=== PATIENT | female | born 1965 | race Caucasian/White ===

== ENCOUNTER 2017-10-14 06:08 | Emergency (ER) | payer BC ==
[~2017-10-14] VITALS: Ht 165.1 cm; Wt 71.7 kg
[2017-10-14] MEDS ORDERED: NS(*) 0.9% 1000 ML BAG 1,000 ML IV ONE (06:20)
[2017-10-14] MEDS ORDERED: MORPHINE 4 MG/ML SYR IVP ONE (06:20)
[2017-10-14] MEDS ORDERED: ONDANSETRON 4 MG/2 ML VIAL IVP ONE (06:20)
[2017-10-14] MEDS ORDERED: SERT20OR6 PO (06:25)
[2017-10-14] MEDS ORDERED: TRAZ-163 PO (06:25)
[2017-10-14] MEDS ORDERED: BECL8.7H INH (06:29)
[2017-10-14] MEDS ORDERED: ALB18R INH (06:29)
[2017-10-14] MEDS ORDERED: NS 0.9% 50 ML VIAL 50 ML ONE (06:45)
[2017-10-14] MEDS ORDERED: IOPAMIDOL 76% 75 ML INFUS BTL 75 ML ONE (06:45)
[2017-10-14 06:47] LABS: PLATELET COUNT, AUTOMATED 209 K/uL (150-450)
--- NOTE | 2017-10-14 06:49 | ER Report ---
History and Physical Time Seen By MD: 06:34 Hx. of Stated Complaint: patient having bilat flank pain for a couple months, but this morning the pain has really gotten wrose. freaquency of urine. patient states she is having nausea. patient took lee. patient has hx of pyelonephritis. (ESTELA BISHOP MD) HPI/ROS CHIEF COMPLAINT: Flank pain HISTORY OF PRESENT ILLNESS: This is a 51-year-old female. She came to the ER this morning because of ongoing problems with flank pain. This is been going on off and on for a couple of days now. At its worst it will be an 8 on a 1-10 scale. Currently about a 4 or 5. Nothing really makes it worse or better. Pain does not ever completely go away. Pain is mainly in the right flank but also a little bit in the left back as well at times. It never really goes into the anterior abdomen. Sometimes is bad enough that it takes her breath away. Her primary care doctor is Dr. 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 She has followed up with Dr. Gonzalez. CT scan also showed a pulmonary nodule. She is also seeing an solar photovoltaic installer for allergies and currently on allergy medicine and nasal spray. Denies any fevers or chills. She has not had any dysuria or hematuria or other changes in the urine. No changes in bowel including no constipation, diarrhea or blood in the stool. Some nausea but no vomiting. REVIEW OF SYSTEMS: Constitutional: No fevers or chills. Eyes: No vision changes. ENT: Congestion and sore throat are mild. Cardiovascular: No chest pain. No palpitations. Respiratory: No cough. No shortness of breath. Gastrointestinal: As above. Genitourinary: As above. Musculoskeletal: No extremity pain. Neurological: History of seizures in the past and subsequent neurosurgery. (ESTELA BISHOP MD) Allergies: Coded Allergies: No Known Drug Allergies (Unverified , 10/14/17) Home Meds Reported Medications Beclomethasone Dipropionate (QNASL) 8.7 Gm Hfa.aer.ad, 2 PUFF INH BID 10/14/17 Albuterol Sulfate (VENTOLIN HFA) 18 Gm Inh, 2 PUFF INH Q4-6H Y for SHORTNESS OF BREATH 1/20/18 Trazodone Hcl (TRAZODONE HCL) 100 Mg Tablet, 100 MG PO HS, TAB 10/14/17 Sertraline Hcl (ZOLOFT) 100 Mg Tablet, 1 TAB PO QDAY, TAB 10/14/17 Reviewed Nurses Notes: Yes (ESTELA BISHOP MD) Hx Substance Use Disorder: No Hx Alcohol Use: Yes (occasional ) (ESTELA BISHOP MD) Constitutional Vital Sign - Last 24 Hours 10/14/17 10/14/17 10/14/17 10/14/17 06:15 06:21 06:23 06:30 Temp 98.2 Pulse 65 56 Resp 24 B/P (MAP) 155/96 146/80 (102) 141/84 (103) Pulse Ox 96 95 O2 Delivery Room Air 10/14/17 10/14/17 10/14/17 10/14/17 06:38 06:49 06:53 06:58 Pulse 67 57 53 Pulse Ox 94 97 97 O2 Flow Rate 1.0 10/14/17 10/14/17 10/14/17 07:13 07:28 07:30 Pulse 51 57 B/P (MAP) 123/69 (87) Pulse Ox 100 (RICK GARCIA MD) Physical Exam General Appearance: The patient is alert. No acute distress. Eyes: Pupils are equal, round. No pallor, injection or icterus. ENT: Mucous membranes are moist. Normal oral mucosa. Posterior oropharynx is normal. Neck: Supple and non tender. No lymphadenopathy. Respiratory: Lungs are clear to auscultation. Cardiovascular: Regular rate and rhythm. No murmurs, gallops or rubs. Normal capillary refill. No edema. Gastrointestinal: Abdomen is soft and non tender. Nondistended. No masses or organomegaly. Normal active bowel sounds. Mild right costovertebral tenderness. Neurological: Alert and oriented x3. Skin: Warm and dry. Musculoskeletal: No tenderness with palpation of thoracic or lumbar spine. Very mild discomfort with palpation over the right lumbar area. DIFFERENTIAL DIAGNOSIS: After history and physical exam, differential diagnosis was considered for flank pain including but not limited to musculoskeletal causes, kidney stone, pyelonephritis, shingles, and intra-abdominal causes such as diverticulitis and appendicitis. (ESTELA BISHOP MD) Medical Decision Making Data Points Result Diagram: 10/14/17 0629 10/14/17 0629 Laboratory Hematology Test 10/14/17 06:29 Red Blood Count 5.04 M/uL (4.17-5.56) Mean Corpuscular Volume 90.2 fL (80.0-96.0) Mean Corpuscular Hemoglobin 31.1 pg (26.0-33.0) Mean Corpuscular Hemoglobin Concent 34.5 g/dL (32.0-36.0) Red Cell Distribution Width 12.9 % (11.5-14.5) Mean Platelet Volume 7.7 fL (7.2-11.1) Neutrophils (%) (Auto) 62.2 % (39.4-72.5) Lymphocytes (%) (Auto) 23.4 % (17.6-49.6) Monocytes (%) (Auto) 7.0 % (4.1-12.4) Eosinophils (%) (Auto) 6.3 % (0.4-6.7) Basophils (%) (Auto) 1.1 % (0.3-1.4) Nucleated RBC Relative Count (auto) 0.1 /100WBC Neutrophils # (Auto) 5.0 K/uL (2.0-7.4) Lymphocytes # (Auto) 1.9 K/uL (1.3-3.6) Monocytes # (Auto) 0.6 K/uL (0.3-1.0) Eosinophils # (Auto) 0.5 K/uL (0.0-0.5) Basophils # (Auto) 0.1 K/uL (0.0-0.1) Nucleated RBC Absolute Count (auto) 0.01 K/uL Urine Color Yellow Urine Clarity Turbid Urine pH 7.0 pH (4.8-9.5) Urine Specific [place] 1.015 Urine Protein Negative mg/dL (NEGATIVE) Urine Glucose (UA) Negative mg/dL (NEGATIVE) Urine Ketones Negative mg/dL (NEGATIVE) Urine Blood Negative (NEGATIVE) Urine Nitrite Negative (NEGATIVE) Urine Bilirubin Negative (NEGATIVE) Urine Urobilinogen Negative mg/dL (0.2-1.9) Urine Leukocyte Esterase Trace (NEGATIVE) Urine RBC 1 /HPF (0-2/HPF) Urine WBC 3 /HPF (0-5/HPF) Urine Squamous Epithelial Cells Moderate /LPF (</=FEW) Urine Amorphous Crystals Moderate /HPF Urine Bacteria Negative /HPF (NONE-FEW) Urine Mucus Few /HPF (NONE-FEW) Sodium Level 138 mmol/L (137-145) Potassium Level 4.1 mmol/L (3.5-5.0) Chloride Level 103 mmol/L (98-107) Carbon Dioxide Level 27 mmol/L (22-31) Blood Urea Nitrogen 17 mg/dl (7-18) Creatinine 1.00 mg/dl (0.52-1.04) Glomerular Filtration Rate Calc 58.2 Random Glucose 88 mg/dl (75-110) Calcium Level 9.4 mg/dl (8.4-10.2) Total Bilirubin 0.5 mg/dl (0.2-1.3) Aspartate Amino Transf (AST/SGOT) 33 U/L (0-35) Alanine Aminotransferase (ALT/SGPT) 57 U/L (0-56) Alkaline Phosphatase 100 U/L (0-126) Total Protein 6.8 gm/dl (6.3-8.2) Albumin 3.8 g/dl (3.5-5.0) Chemistry Test 10/14/17 06:29 White Blood Count 8.0 k/uL (4.5-11.0) Red Blood Count 5.04 M/uL (4.17-5.56) Hemoglobin 15.7 g/dL (12.0-16.0) Hematocrit 45.5 % (34.0-47.0) Mean Corpuscular Volume 90.2 fL (80.0-96.0) Mean Corpuscular Hemoglobin 31.1 pg (26.0-33.0) Mean Corpuscular Hemoglobin Concent 34.5 g/dL (32.0-36.0) Red Cell Distribution Width 12.9 % (11.5-14.5) Platelet Count 209 K/uL (150-450) Mean Platelet Volume 7.7 fL (7.2-11.1) Neutrophils (%) (Auto) 62.2 % (39.4-72.5) Lymphocytes (%) (Auto) 23.4 % (17.6-49.6) Monocytes (%) (Auto) 7.0 % (4.1-12.4) Eosinophils (%) (Auto) 6.3 % (0.4-6.7) Basophils (%) (Auto) 1.1 % (0.3-1.4) Nucleated RBC Relative Count (auto) 0.1 /100WBC Neutrophils # (Auto) 5.0 K/uL (2.0-7.4) Lymphocytes # (Auto) 1.9 K/uL (1.3-3.6) Monocytes # (Auto) 0.6 K/uL (0.3-1.0) Eosinophils # (Auto) 0.5 K/uL (0.0-0.5) Basophils # (Auto) 0.1 K/uL (0.0-0.1) Nucleated RBC Absolute Count (auto) 0.01 K/uL Urine Color Yellow Urine Clarity Turbid Urine pH 7.0 pH (4.8-9.5) Urine Specific [place] 1.015 Urine Protein Negative mg/dL (NEGATIVE) Urine Glucose (UA) Negative mg/dL (NEGATIVE) Urine Ketones Negative mg/dL (NEGATIVE) Urine Blood Negative (NEGATIVE) Urine Nitrite Negative (NEGATIVE) Urine Bilirubin Negative (NEGATIVE) Urine Urobilinogen Negative mg/dL (0.2-1.9) Urine Leukocyte Esterase Trace (NEGATIVE) Urine RBC 1 /HPF (0-2/HPF) Urine WBC 3 /HPF (0-5/HPF) Urine Squamous Epithelial Cells Moderate /LPF (</=FEW) Urine Amorphous Crystals Moderate /HPF Urine Bacteria Negative /HPF (NONE-FEW) Urine Mucus Few /HPF (NONE-FEW) Glomerular Filtration Rate Calc 58.2 Calcium Level 9.4 mg/dl (8.4-10.2) Total Bilirubin 0.5 mg/dl (0.2-1.3) Aspartate Amino Transf (AST/SGOT) 33 U/L (0-35) Alanine Aminotransferase (ALT/SGPT) 57 U/L (0-56) Alkaline Phosphatase 100 U/L (0-126) Total Protein 6.8 gm/dl (6.3-8.2) Albumin 3.8 g/dl (3.5-5.0) Urinalysis Test 10/14/17 06:29 Urine Color Yellow Urine Clarity Turbid Urine pH 7.0 pH (4.8-9.5) Urine Specific [place] 1.015 Urine Protein Negative mg/dL (NEGATIVE) Urine Glucose (UA) Negative mg/dL (NEGATIVE) Urine Ketones Negative mg/dL (NEGATIVE) Urine Blood Negative (NEGATIVE) Urine Nitrite Negative (NEGATIVE) Urine Bilirubin Negative (NEGATIVE) Urine Urobilinogen Negative mg/dL (0.2-1.9) Urine Leukocyte Esterase Trace (NEGATIVE) Urine RBC 1 /HPF (0-2/HPF) Urine WBC 3 /HPF (0-5/HPF) Urine Squamous Epithelial Cells Moderate /LPF (</=FEW) Urine Amorphous Crystals Moderate /HPF Urine Bacteria Negative /HPF (NONE-FEW) Urine Mucus Few /HPF (NONE-FEW) (RICK GARCIA MD) ED Course/Re-evaluation ED Course I took this patient over from Dr. Bishop pending results of a CT scan of the abdomen and pelvis that was obtained to evaluate for a kidney stone. No stone, but there are a few non-specific findings that will need to be followed up with a CT scan of the chest/abdomen/pelvis with IV contrast. I spoke with Dr. Hood this morning, and relayed that information. I also spoke with the patient about the same. I do not think these findings are the source of her pain, but they do need to be evaluated further. I will career technical counselor her to take ibuprofen and tylenol for the pain, and follow up with Dr. Hood this week. Decision to Disposition Date: Oct 14, 2017 Decision to Disposition Time: 08:25 (RICK GARCIA MD) Depart Departure Latest Vital Signs Vital Signs Date Time Temp Pulse Resp B/P (MAP) Pulse Ox O2 Delivery O2 Flow Rate FiO2 10/14/17 07:30 123/69 (87) 10/14/17 07:28 57 10/14/17 07:13 100 10/14/17 06:49 1.0 10/14/17 06:15 98.2 24 Room Air (RICK GARCIA MD) Impression: Primary Impression: Flank pain Condition: Improved Disposition: HOME OR SELF-CARE Referrals: LEENA HOOD DO (PCP) Patient Instructions: Flank Pain (ED) Additional Instructions: FOLLOW UP WITH DR. HOOD THIS WEEK. SHE WILL ORDER A CT SCAN OF YOUR CHEST AND ABDOMEN/PELVIS. ESTELA BISHOP MD Oct 14, 2017 06:49 RICK GARCIA MD Oct 14, 2017 08:25
--- NOTE | 2017-10-14 07:43 | RADIOLOGY IMAGING REPORT ---
FACILITY: [facility] - [place] PATIENT NAME: Safia Valdez : 1965 MR: [id number] V: [id number] EXAM DATE: ORDERING PHYSICIAN: ESTELA MOORE TECHNOLOGIST: Location: [facility] - [place] Patient: Safia Valdez : 1965 Visit/Account:[id number] Date of Sevice: 10/14/2017 CT of the abdomen and pelvis with contrast: Indication: Right flank pain. Technique: Helical CT was performed through the abdomen and pelvis following IV contrast enhancement with 75 cc of [id number]-[id number]. Multiplanar reconstructions are reviewed. One of the following dose optimization techniques was utilized in the performance of this exam: Autom ated exposure control; adjustment of the mA and/or kV according to the patient's size; or use of an i terative reconstruction technique. Specific details can be referenced in the facility's radiology C T exam operational policy. Comparison: Noncontrast CT study dated 08/03/2017. Lower lung hess: There is a 3 mm noncalcified nodule in the right lower lobe, of indeterminant sign ificance. This portion of the chest was not imaged on the previous study. There is an additional nodu lar opacity in the right posterior costophrenic sulcus, which is unchanged. There is minimal linear a telectasis at both bases. There are no signs of pleural effusion. Liver: There is heterogeneous enhancement of the posterior portion of the right lobe of the liver, wh ich may be related to presence of hemangioma or infiltrating neoplasm. Direct comparison to the prior study is limited due to the lack of contrast. It is recommended that follow-up CT be performed with multiphase contrast imaging. The liver is otherwise unremarkable. Gallbladder/biliary tree: There are surgical clips related to prior cholecystectomy. There is persist ent evidence of air in the biliary tree, related to prior surgery or sphincterotomy. There are no sig ns of biliary obstruction. Pancreas: Normal in size, shape, and density. There are no signs of acute inflammation or fluid. Spleen: There is incidental note of a tiny cyst in the lateral margin. The splenic parenchyma is othe rwise homogeneous. A tiny accessory spleen appears unchanged. Adrenal glands: Within normal limits. Kidneys/urinary bladder: There is a small cortical lesion at the posterior and inferior margin of the right kidney, which may represent a small cyst or cysts. A similar finding was observed on the previ ous study, and there has been no significant change. There appear to be some tiny cortical cysts in b oth kidneys. The kidneys are otherwise unremarkable and unchanged. There are no signs of urinary trac t calculus or obstruction. The bladder is homogeneous and unremarkable, as visualized. Intestinal structures: Unremarkable, as visualized. There are no signs of obstruction or focal inflam matory changes. The appendix is not visualized. Pelvis: The uterus and adnexal structures are unremarkable and unchanged. There is no evidence of flu id or inflammatory changes in the pelvis. Aorta and vascular structures: Within normal limits. Ascites or fluid collections: None seen. Skeletal structures: There are stable degenerative changes in the lumbar spine. No acute skeletal def ormity is identified. Impression: Multiple findings, as detailed above. Follow-up evaluation is recommended for reevaluatio n of pulmonary nodules and heterogeneous enhancement of the liver. Report Dictated By: Broderick Cunningham MD at 10/14/2017 7:19 AM Report E-Signed By: Broderick Cunningham MD at 10/14/2017 7:38 AM WSN:[id number]
[2017-10-14 08:32] VITALS: BP 124/99
== END 2017-10-14 08:39 | disposition home or self-care (01) ==
LOC: ER 06:29
DX: R10.9 Unspecified abdominal pain (principal)
CPT/HCPCS: 74177; 81001; 85025; 96361; 96374; 96375; 99284; J2270; J2405; J7030; J7050; Q9967; 82040; 82247; 82310; 82374; 82435; 82565; 82947; 84075; 84132; 84155; 84295; 84450; 84460; 84520

== ENCOUNTER → 2017-10-23 | Outpatient (CLI) | payer BC ==
[~2017-10-23] MED LIST: ALB18R INH; BECL8.7H INH; SERT20OR6 PO; TRAZ-163 PO
[2017-10-23 15:36] LABS: PLATELET COUNT, AUTOMATED 259 K/uL (150-450)
== END ==
LOC: LAB 14:53
PROVIDERS: ATTEND Allergy & Immunology Allergy
DX: M19.90 Unspecified osteoarthritis, unspecified site (principal)
CPT/HCPCS: 36415; 82784; 82785; 85025; 86038; 86140; 86200; 86430; 86812

== ENCOUNTER 2017-12-25 14:28 | Emergency (ER) | payer BC ==
[~2017-12-25 14:28] MED LIST changes: +SERT-173 PO; -SERT20OR6 PO
[2017-12-25] MEDS ORDERED: DICYCLOMINE HCL 10 MG CAP PO ONE ×2 (15:15)
[2017-12-25] MEDS ORDERED: APAP/HYDROCODONE 325/5 TAB PO ONE ×2 (15:15)
[2017-12-25 15:19] LABS: PLATELET COUNT, AUTOMATED 209 K/uL (150-450)
[2017-12-25] MEDS ORDERED: NITROFURANTOIN MONO 100 MG PO ONE (15:40)
--- NOTE | 2017-12-25 15:45 | ER Report ---
History and Physical Time Seen By MD: 14:44 Hx. of Stated Complaint: PT COMPLAINS OF ABDOMINAL PAIN AND "PINS" IN URINARY AREA. PT WORRIED ABOUT POSSIBLE BLOOD IN STOOL. HPI/ROS CHIEF COMPLAINT: Dysuria HISTORY OF PRESENT ILLNESS: 51-year-old female with urinary symptoms "for some time now" presents with worsening over the past 2 days and steady worsening since this morning with dysuria and feelings of need to urinate without significant urine output at times. Today she was straining at stool and was unable to have a bowel movement but bowel movement was diarrhea yesterday. "I feel bloated and like something should come out but nothing does" she states. Urinary frequency also present. Denies hematuria "I noticed the blood in my stool this morning." Blood in stool was a brief recurrence and did not recur. She denies prior hemorrhoids or polyps or colon cancer. REVIEW OF SYSTEMS: Constitutional: No fever, no chills. Eyes: No discharge. ENT: No sore throat. Cardiovascular: No chest pain, no palpitations. Respiratory: No cough, no shortness of breath. Gastrointestinal: Diffuse lower abdominal pain, no vomiting Genitourinary: No hematuria. Musculoskeletal: No back pain. Skin: No rashes. Neurological: No headache. Allergies: Coded Allergies: No Known Drug Allergies (Unverified , 12/25/17) Home Meds Reported Medications Trazodone Hcl (TRAZODONE HCL) 100 Mg Tablet, 100 MG PO HS, TAB 10/14/17 Sertraline Hcl (ZOLOFT) 100 Mg Tablet, 1 TAB PO QDAY, TAB 10/14/17 Discontinued Reported Medications Beclomethasone Dipropionate (QNASL) 8.7 Gm Hfa.aer.ad, 2 PUFF INH BID 10/14/17 Albuterol Sulfate (VENTOLIN HFA) 18 Gm Inh, 2 PUFF INH Q4-6H Y for SHORTNESS OF BREATH 10/14/17 Hx Substance Use Disorder: No Hx Alcohol Use: Yes (occasional ) Constitutional Vital Sign - Last 24 Hours 12/25/17 14:44 Temp 97.7 Pulse 64 Resp 16 B/P (MAP) 171/106 Pulse Ox 96 O2 Delivery Room Air Physical Exam General Appearance: The patient is alert, has no immediate need for airway protection and no signs of toxicity. No acute distress Eyes: Pupils equal and round no pallor or injection. ENT, Mouth: Mucous membranes are moist. Respiratory: There are no retractions, lungs are clear to auscultation. Cardiovascular: Regular rate and rhythm. No murmurs gallops or rubs Gastrointestinal: Abdomen is soft and non tender, no masses, bowel sounds normal. Rectal: Anoscopy was performed and small area of erosion was seen in the anal mucosa at approximately 2:00, deep to the internal sphincter. This area was seen To have no active bleeding. No hemorrhoids were appreciated. Digital rectal exam was negative for melena or gross blood. A sample was sent for Hemoccult studies. Neurological: Normal gross exam Skin: Warm and dry, no rashes. Musculoskeletal: Neck is supple non tender. Extremities are nontender, nonswollen and have full range of motion. No edema DIFFERENTIAL DIAGNOSIS: After history and physical exam differential diagnosis was considered for uti, cystitis, pyelonephritis, renal stone, gastroenteritis, hemorrhoids, bleeding from sigmoid, polyp or other site. Medical Decision Making Data Points Result Diagram: 12/25/17 1505 12/25/17 1505 Laboratory Hematology Test 12/25/17 14:33 12/25/17 15:05 12/25/17 15:30 Urine Color Yellow Urine Clarity Cloudy Urine pH 6.0 pH (4.8-9.5) Urine Specific [place] 1.018 Urine Protein Negative mg/dL (NEGATIVE) Urine Glucose (UA) Negative mg/dL (NEGATIVE) Urine Ketones Negative mg/dL (NEGATIVE) Urine Blood Negative (NEGATIVE) Urine Nitrite Negative (NEGATIVE) Urine Bilirubin Negative (NEGATIVE) Urine Urobilinogen Negative mg/dL (0.2-1.9) Urine Leukocyte Esterase Large (NEGATIVE) Urine RBC 8 /HPF (0-2/HPF) Urine WBC 22 /HPF (0-5/HPF) Urine Squamous Epithelial Cells Many /LPF (</=FEW) Urine Amorphous Crystals Few /HPF Urine Bacteria Negative /HPF (NONE-FEW) Urine Mucus None /HPF (NONE-FEW) Red Blood Count 5.26 M/uL (4.17-5.56) Mean Corpuscular Volume 89.9 fL (80.0-96.0) Mean Corpuscular Hemoglobin 31.7 pg (26.0-33.0) Mean Corpuscular Hemoglobin Concent 35.3 g/dL (32.0-36.0) Red Cell Distribution Width 13.6 % (11.5-14.5) Mean Platelet Volume 7.5 fL (7.2-11.1) Neutrophils (%) (Auto) 68.7 % (39.4-72.5) Lymphocytes (%) (Auto) 17.6 % (17.6-49.6) Monocytes (%) (Auto) 6.8 % (4.1-12.4) Eosinophils (%) (Auto) 6.0 % (0.4-6.7) Basophils (%) (Auto) 0.9 % (0.3-1.4) Nucleated RBC Relative Count (auto) 0.1 /100WBC Neutrophils # (Auto) 6.2 K/uL (2.0-7.4) Lymphocytes # (Auto) 1.6 K/uL (1.3-3.6) Monocytes # (Auto) 0.6 K/uL (0.3-1.0) Eosinophils # (Auto) 0.5 K/uL (0.0-0.5) Basophils # (Auto) 0.1 K/uL (0.0-0.1) Nucleated RBC Absolute Count (auto) 0.01 K/uL Sodium Level 141 mmol/L (137-145) Potassium Level 3.5 mmol/L (3.5-5.0) Chloride Level 101 mmol/L (98-107) Carbon Dioxide Level 26 mmol/L (22-31) Blood Urea Nitrogen 18 mg/dl (7-18) Creatinine 1.20 mg/dl (0.52-1.04) Glomerular Filtration Rate Calc 47.0 Random Glucose 104 mg/dl (75-110) Calcium Level 9.5 mg/dl (8.4-10.2) Total Bilirubin 0.5 mg/dl (0.2-1.3) Aspartate Amino Transf (AST/SGOT) 36 U/L (0-35) Alanine Aminotransferase (ALT/SGPT) 47 U/L (0-56) Alkaline Phosphatase 91 U/L (0-126) Total Protein 7.2 gm/dl (6.3-8.2) Albumin 3.9 g/dl (3.5-5.0) Lipase 181 U/L (23-300) Human Chorionic Gonadotropin, Qual Negative (NEGATIVE) Stool Occult Blood (IFOB) Positive (NEGATIVE) Chemistry Test 12/25/17 14:33 12/25/17 15:05 12/25/17 15:30 Urine Color Yellow Urine Clarity Cloudy Urine pH 6.0 pH (4.8-9.5) Urine Specific [place] 1.018 Urine Protein Negative mg/dL (NEGATIVE) Urine Glucose (UA) Negative mg/dL (NEGATIVE) Urine Ketones Negative mg/dL (NEGATIVE) Urine Blood Negative (NEGATIVE) Urine Nitrite Negative (NEGATIVE) Urine Bilirubin Negative (NEGATIVE) Urine Urobilinogen Negative mg/dL (0.2-1.9) Urine Leukocyte Esterase Large (NEGATIVE) Urine RBC 8 /HPF (0-2/HPF) Urine WBC 22 /HPF (0-5/HPF) Urine Squamous Epithelial Cells Many /LPF (</=FEW) Urine Amorphous Crystals Few /HPF Urine Bacteria Negative /HPF (NONE-FEW) Urine Mucus None /HPF (NONE-FEW) White Blood Count 9.0 k/uL (4.5-11.0) Red Blood Count 5.26 M/uL (4.17-5.56) Hemoglobin 16.7 g/dL (12.0-16.0) Hematocrit 47.2 % (34.0-47.0) Mean Corpuscular Volume 89.9 fL (80.0-96.0) Mean Corpuscular Hemoglobin 31.7 pg (26.0-33.0) Mean Corpuscular Hemoglobin Concent 35.3 g/dL (32.0-36.0) Red Cell Distribution Width 13.6 % (11.5-14.5) Platelet Count 209 K/uL (150-450) Mean Platelet Volume 7.5 fL (7.2-11.1) Neutrophils (%) (Auto) 68.7 % (39.4-72.5) Lymphocytes (%) (Auto) 17.6 % (17.6-49.6) Monocytes (%) (Auto) 6.8 % (4.1-12.4) Eosinophils (%) (Auto) 6.0 % (0.4-6.7) Basophils (%) (Auto) 0.9 % (0.3-1.4) Nucleated RBC Relative Count (auto) 0.1 /100WBC Neutrophils # (Auto) 6.2 K/uL (2.0-7.4) Lymphocytes # (Auto) 1.6 K/uL (1.3-3.6) Monocytes # (Auto) 0.6 K/uL (0.3-1.0) Eosinophils # (Auto) 0.5 K/uL (0.0-0.5) Basophils # (Auto) 0.1 K/uL (0.0-0.1) Nucleated RBC Absolute Count (auto) 0.01 K/uL Glomerular Filtration Rate Calc 47.0 Calcium Level 9.5 mg/dl (8.4-10.2) Total Bilirubin 0.5 mg/dl (0.2-1.3) Aspartate Amino Transf (AST/SGOT) 36 U/L (0-35) Alanine Aminotransferase (ALT/SGPT) 47 U/L (0-56) Alkaline Phosphatase 91 U/L (0-126) Total Protein 7.2 gm/dl (6.3-8.2) Albumin 3.9 g/dl (3.5-5.0) Lipase 181 U/L (23-300) Human Chorionic Gonadotropin, Qual Negative (NEGATIVE) Stool Occult Blood (IFOB) Positive (NEGATIVE) Urinalysis Test 12/25/17 14:33 Urine Color Yellow Urine Clarity Cloudy Urine pH 6.0 pH (4.8-9.5) Urine Specific [place] 1.018 Urine Protein Negative mg/dL (NEGATIVE) Urine Glucose (UA) Negative mg/dL (NEGATIVE) Urine Ketones Negative mg/dL (NEGATIVE) Urine Blood Negative (NEGATIVE) Urine Nitrite Negative (NEGATIVE) Urine Bilirubin Negative (NEGATIVE) Urine Urobilinogen Negative mg/dL (0.2-1.9) Urine Leukocyte Esterase Large (NEGATIVE) Urine RBC 8 /HPF (0-2/HPF) Urine WBC 22 /HPF (0-5/HPF) Urine Squamous Epithelial Cells Many /LPF (</=FEW) Urine Amorphous Crystals Few /HPF Urine Bacteria Negative /HPF (NONE-FEW) Urine Mucus None /HPF (NONE-FEW) EKG/Imaging Imaging Neg KUB for obstructive process results discussed all questions answered home care was discussed. She voiced concerns about constipation, should constipation develop patient understands she can use [id number] Metamucil or Citrucel along with increased hydration. ED Course/Re-evaluation ED Course Plan of care was agreed upon prior to orders placed. Procedure Anoscopy: Indication rectal bleed Technique: the anoscope was gently inserted after lubrication applied Results: Small area of erosion at approximately 2:00 without active bleed no internal hemorrhoids appreciated. Decision to Disposition Date: Dec 25, 2017 Decision to Disposition Time: 16:33 Depart Departure Latest Vital Signs Vital Signs Date Time Temp Pulse Resp B/P (MAP) Pulse Ox O2 Delivery O2 Flow Rate FiO2 12/25/17 14:44 97.7 64 16 171/106 96 Room Air Impression: Primary Impression: Cystitis Condition: Improved Disposition: HOME OR SELF-CARE Referrals: LEENA PFEIFFER DO (PCP) New Scripts Nitrofurantoin Monohyd/M-Cryst (MACROBID 100 MG CAPSULE) 100 Mg Capsule 100 MG PO BID for 10 Days, #20 CAPSULE Prov: BON REDDY MD 12/25/17 Patient Instructions: Urinary Tract Infection in Women (ED) BON REDDY MD Dec 25, 2017 15:45
--- NOTE | 2017-12-25 16:19 | RADIOLOGY IMAGING REPORT ---
FACILITY: [facility] - [place] PATIENT NAME: Safia Valdez : 1965 MR: [id number] V: [id number] EXAM DATE: ORDERING PHYSICIAN: BON REDDY TECHNOLOGIST: [place] [facility] [place]: Safia Valdez : 1965 Visit/Account:[id number] Date of Sevice: 12/25/2017 Technique: KUB SINGLE VIEW ABDOMEN HISTORY: obstruction Comparison studies: CT abdomen pelvis October 14, 2017 FINDINGS: Imaged portions of the lung bases are clear. The bowel gas pattern is nonobstructive. Mod erate stool burden is seen throughout the ascending colon. Degenerative changes are noted at the lum bosacral junction. IMPRESSION: 1. No acute intra-abdominal process. Report Dictated By: Erlin Kaba DO at 12/25/2017 4:13 PM Report E-Signed By: Erlin Kaba DO at 12/25/2017 4:15 PM WSN:[id number]
[2017-12-25 16:30] VITALS: BP 130/79
[2017-12-25] MEDS ORDERED: NITR-105 PO (16:36)
--- NOTE | 2017-12-25 18:03 | ER Report ---
History and Physical Time Seen By MD: 14:32 Allergies: Coded Allergies: No Known Drug Allergies (Unverified , 12/25/17) Home Meds Active Scripts Nitrofurantoin Monohyd/M-Cryst (MACROBID 100 MG CAPSULE) 100 Mg Capsule, 100 MG PO BID for 10 Days, #20 CAPSULE Prov:BON REDDY MD 12/25/17 Reported Medications Trazodone Hcl (TRAZODONE HCL) 100 Mg Tablet, 100 MG PO HS, TAB 10/14/17 Sertraline Hcl (ZOLOFT) 100 Mg Tablet, 1 TAB PO QDAY, TAB 10/14/17 Discontinued Reported Medications Beclomethasone Dipropionate (QNASL) 8.7 Gm Hfa.aer.ad, 2 PUFF INH BID 10/14/17 Albuterol Sulfate (VENTOLIN HFA) 18 Gm Inh, 2 PUFF INH Q4-6H Y for SHORTNESS OF BREATH 10/14/17 Hx Substance Use Disorder: No Hx Alcohol Use: Yes (occasional ) Constitutional Vital Sign - Last 24 Hours 12/25/17 12/25/17 12/25/17 12/25/17 14:43 14:44 14:45 14:48 Temp 97.7 Pulse 60 64 Resp 16 B/P (MAP) 171/106 171/106 (127) 168/98 (121) Pulse Ox 96 O2 Delivery Room Air 12/25/17 12/25/17 12/25/17 12/25/17 14:58 15:00 15:13 15:28 Pulse 76 80 102 B/P (MAP) 148/101 (117) Pulse Ox 94 91 88 12/25/17 12/25/17 12/25/17 12/25/17 15:30 15:58 16:00 16:13 Pulse 87 93 B/P (MAP) 135/82 (99) 118/78 (91) Pulse Ox 88 87 12/25/17 12/25/17 12/25/17 12/25/17 16:13 16:28 16:30 16:43 Pulse 93 93 70 B/P (MAP) 130/79 (96) Pulse Ox 87 85 96 Medical Decision Making Data Points Result Diagram: 12/25/17 1505 12/25/17 1505 Laboratory Hematology Test 12/25/17 14:33 12/25/17 15:12/25/17 15:30 Urine Color Yellow Urine Clarity Cloudy Urine pH 6.0 pH (4.8-9.5) Urine Specific [place] 1.018 Urine Protein Negative mg/dL (NEGATIVE) Urine Glucose (UA) Negative mg/dL (NEGATIVE) Urine Ketones Negative mg/dL (NEGATIVE) Urine Blood Negative (NEGATIVE) Urine Nitrite Negative (NEGATIVE) Urine Bilirubin Negative (NEGATIVE) Urine Urobilinogen Negative mg/dL (0.2-1.9) Urine Leukocyte Esterase Large (NEGATIVE) Urine RBC 8 /HPF (0-2/HPF) Urine WBC 22 /HPF (0-5/HPF) Urine Squamous Epithelial Cells Many /LPF (</=FEW) Urine Amorphous Crystals Few /HPF Urine Bacteria Negative /HPF (NONE-FEW) Urine Mucus None /HPF (NONE-FEW) Red Blood Count 5.26 M/uL (4.17-5.56) Mean Corpuscular Volume 89.9 fL (80.0-96.0) Mean Corpuscular Hemoglobin 31.7 pg (26.0-33.0) Mean Corpuscular Hemoglobin Concent 35.3 g/dL (32.0-36.0) Red Cell Distribution Width 13.6 % (11.5-14.5) Mean Platelet Volume 7.5 fL (7.2-11.1) Neutrophils (%) (Auto) 68.7 % (39.4-72.5) Lymphocytes (%) (Auto) 17.6 % (17.6-49.6) Monocytes (%) (Auto) 6.8 % (4.1-12.4) Eosinophils (%) (Auto) 6.0 % (0.4-6.7) Basophils (%) (Auto) 0.9 % (0.3-1.4) Nucleated RBC Relative Count (auto) 0.1 /100WBC Neutrophils # (Auto) 6.2 K/uL (2.0-7.4) Lymphocytes # (Auto) 1.6 K/uL (1.3-3.6) Monocytes # (Auto) 0.6 K/uL (0.3-1.0) Eosinophils # (Auto) 0.5 K/uL (0.0-0.5) Basophils # (Auto) 0.1 K/uL (0.0-0.1) Nucleated RBC Absolute Count (auto) 0.01 K/uL Sodium Level 141 mmol/L (137-145) Potassium Level 3.5 mmol/L (3.5-5.0) Chloride Level 101 mmol/L (98-107) Carbon Dioxide Level 26 mmol/L (22-31) Blood Urea Nitrogen 18 mg/dl (7-18) Creatinine 1.20 mg/dl (0.52-1.04) Glomerular Filtration Rate Calc 47.0 Random Glucose 104 mg/dl (75-110) Calcium Level 9.5 mg/dl (8.4-10.2) Total Bilirubin 0.5 mg/dl (0.2-1.3) Aspartate Amino Transf (AST/SGOT) 36 U/L (0-35) Alanine Aminotransferase (ALT/SGPT) 47 U/L (0-56) Alkaline Phosphatase 91 U/L (0-126) Total Protein 7.2 gm/dl (6.3-8.2) Albumin 3.9 g/dl (3.5-5.0) Lipase 181 U/L (23-300) Human Chorionic Gonadotropin, Qual Negative (NEGATIVE) Stool Occult Blood (IFOB) Positive (NEGATIVE) Chemistry Test 12/25/17 14:33 12/25/17 15:05 12/25/17 15:30 Urine Color Yellow Urine Clarity Cloudy Urine pH 6.0 pH (4.8-9.5) Urine Specific [place] 1.018 Urine Protein Negative mg/dL (NEGATIVE) Urine Glucose (UA) Negative mg/dL (NEGATIVE) Urine Ketones Negative mg/dL (NEGATIVE) Urine Blood Negative (NEGATIVE) Urine Nitrite Negative (NEGATIVE) Urine Bilirubin Negative (NEGATIVE) Urine Urobilinogen Negative mg/dL (0.2-1.9) Urine Leukocyte Esterase Large (NEGATIVE) Urine RBC 8 /HPF (0-2/HPF) Urine WBC 22 /HPF (0-5/HPF) Urine Squamous Epithelial Cells Many /LPF (</=FEW) Urine Amorphous Crystals Few /HPF Urine Bacteria Negative /HPF (NONE-FEW) Urine Mucus None /HPF (NONE-FEW) White Blood Count 9.0 k/uL (4.5-11.0) Red Blood Count 5.26 M/uL (4.17-5.56) Hemoglobin 16.7 g/dL (12.0-16.0) Hematocrit 47.2 % (34.0-47.0) Mean Corpuscular Volume 89.9 fL (80.0-96.0) Mean Corpuscular Hemoglobin 31.7 pg (26.0-33.0) Mean Corpuscular Hemoglobin Concent 35.3 g/dL (32.0-36.0) Red Cell Distribution Width 13.6 % (11.5-14.5) Platelet Count 209 K/uL (150-450) Mean Platelet Volume 7.5 fL (7.2-11.1) Neutrophils (%) (Auto) 68.7 % (39.4-72.5) Lymphocytes (%) (Auto) 17.6 % (17.6-49.6) Monocytes (%) (Auto) 6.8 % (4.1-12.4) Eosinophils (%) (Auto) 6.0 % (0.4-6.7) Basophils (%) (Auto) 0.9 % (0.3-1.4) Nucleated RBC Relative Count (auto) 0.1 /100WBC Neutrophils # (Auto) 6.2 K/uL (2.0-7.4) Lymphocytes # (Auto) 1.6 K/uL (1.3-3.6) Monocytes # (Auto) 0.6 K/uL (0.3-1.0) Eosinophils # (Auto) 0.5 K/uL (0.0-0.5) Basophils # (Auto) 0.1 K/uL (0.0-0.1) Nucleated RBC Absolute Count (auto) 0.01 K/uL Glomerular Filtration Rate Calc 47.0 Calcium Level 9.5 mg/dl (8.4-10.2) Total Bilirubin 0.5 mg/dl (0.2-1.3) Aspartate Amino Transf (AST/SGOT) 36 U/L (0-35) Alanine Aminotransferase (ALT/SGPT) 47 U/L (0-56) Alkaline Phosphatase 91 U/L (0-126) Total Protein 7.2 gm/dl (6.3-8.2) Albumin 3.9 g/dl (3.5-5.0) Lipase 181 U/L (23-300) Human Chorionic Gonadotropin, Qual Negative (NEGATIVE) Stool Occult Blood (IFOB) Positive (NEGATIVE) Urinalysis Test 12/25/17 14:33 Urine Color Yellow Urine Clarity Cloudy Urine pH 6.0 pH (4.8-9.5) Urine Specific [place] 1.018 Urine Protein Negative mg/dL (NEGATIVE) Urine Glucose (UA) Negative mg/dL (NEGATIVE) Urine Ketones Negative mg/dL (NEGATIVE) Urine Blood Negative (NEGATIVE) Urine Nitrite Negative (NEGATIVE) Urine Bilirubin Negative (NEGATIVE) Urine Urobilinogen Negative mg/dL (0.2-1.9) Urine Leukocyte Esterase Large (NEGATIVE) Urine RBC 8 /HPF (0-2/HPF) Urine WBC 22 /HPF (0-5/HPF) Urine Squamous Epithelial Cells Many /LPF (</=FEW) Urine Amorphous Crystals Few /HPF Urine Bacteria Negative /HPF (NONE-FEW) Urine Mucus None /HPF (NONE-FEW) Depart Departure Latest Vital Signs Vital Signs Date Time Temp Pulse Resp B/P (MAP) Pulse Ox O2 Delivery O2 Flow Rate FiO2 12/25/17 16:43 70 96 12/25/17 16:30 130/79 (96) 12/25/17 14:44 97.7 16 Room Air Referrals: LEENA PFEIFFER DO (PCP) New Scripts Nitrofurantoin Monohyd/M-Cryst (MACROBID 100 MG CAPSULE) 100 Mg Capsule 100 MG PO BID for 10 Days, #20 CAPSULE Prov: BON REDDY MD 12/25/17 BON REDDY MD Dec 25, 2017 18:03
== END 2017-12-25 16:54 | disposition home or self-care (01) ==
LOC: ER 14:32
DX: N30.90 Cystitis, unspecified without hematuria (principal)
CPT/HCPCS: 74018; 81001; 82040; 82247; 82274; 82310; 82374; 82435; 82565; 82947; 83690; 84075; 84132; 84155; 84295; 84450; 84460; 84520; 84703; 85025; 99284

== ENCOUNTER → 2018-03-07 | Outpatient (CLI) | payer BC ==
[~2018-03-07] MED LIST changes: +NITR-105 PO
--- NOTE | 2018-03-08 13:36 | RADIOLOGY IMAGING REPORT ---
FACILITY: [facility] PATIENT NAME: Safia Valdez : 1965 MR: [id number] V: [id number] EXAM DATE: ORDERING PHYSICIAN: LEENA PFEIFFER TECHNOLOGIST: Location: [facility] - [place] Patient: Safia Valdez : 1965 Visit/Account:[id number] Date of Sevice: 03/07/2018 KIDNEYS EXAMINATION: Renal ultrasound. History: Right renal cyst, flank pain COMPARISON STUDIES: Renal ultrasound July 19, [address] October 14, 2017 FINDINGS: Kidneys: Right kidney- 8.8 x 3.6 x 4.9 cm.. Lung the inferior aspect of the right kidney there is a 1.9 x 1.7 x 1.4 cm echogenic region slightly more prominent when compared the prior study with no acoustic sha dowing. This may represent small fatty deposit or angiomyolipoma. Left kidney- 10.6 x 4 x 4.6 cm Uniform and symmetric blood flow in each kidney by Doppler ultrasound. Hydronephrosis: none Resistive index on the right 0.49 on the left 0.54 Bladder: Prevoid volume 206 mL. Post void residual 0 mL. Bilateral ureteral jets are present Abdominal aorta and IVC: Aorta and IVC are patent by Doppler ultrasound. IMPRESSION: No evidence of hydronephrosis No post void bladder residual Echogenic nodule inferior aspect of the right kidney again seen which may represent small fatty depos it or angiomyolipoma Report Dictated By: Gwendolyn Goodman MD at 03/07/2018 4:23 PM Report E-Signed By: Gwendolyn Goodman MD at 03/08/2018 1:33 PM WSN:[email or web address]
== END ==
LOC: US 08:26
PROVIDERS: ATTEND Family Medicine
DX: N28.1 Cyst of kidney, acquired (principal)
CPT/HCPCS: 76705

== ENCOUNTER 2018-03-28 17:41 | Emergency (ER) | payer BC ==
--- NOTE | 2018-03-28 17:57 | ER Report ---
History and Physical Time Seen By MD: 17:57 Hx. of Stated Complaint: left kidney pain. rt kidney has a mass in on it HPI/ROS CHIEF COMPLAINT: Left flank pain, UTI symptoms HISTORY OF PRESENT ILLNESS: 52-year-old female presents ambulatory to the ER not feeling well, complaining of generalized abdominal bloating and dysuria. She notes pain in her left flank. Patient reports several month history of urinary tract problems. She's been referred to urology. She has an appointment scheduled later this month for urology down at [place]. She was seen here in the ER back in December with urinary tract infection. She was treated with Macrobid. More recently she was seen by her primary care physician , Dr. Hood and placed on Macrobid for urinary tract infection. Patient finished that about 2 weeks ago. She's never completely recovered. She notes a CAT scan was performed back in September which showed a mass on both kidneys. Patient also has a recent renal ultrasound 03/07/18. The review of the CAT scan shows bilateral cortical cysts. Patient denies fever and chills with current episode. She notes that after she voids her bladder. She feels like she has more pressure in her bladder. She notes no hematuria or burning. Patient status post cholecystectomy. She notes a large midline scar from her naval to her sternum. Patient notes that she has chronic diarrhea. She had a colonoscopy performed around age 49, which was unremarkable. She notes that she has more diarrhea when she eats out. REVIEW OF SYSTEMS: Respiratory: No cough, no dyspnea. Cardiovascular: No chest pain, no palpitations. Gastrointestinal: As above Musculoskeletal: As above Allergies: Coded Allergies: No Known Drug Allergies (Unverified , 03/28/18) Home Meds Active Scripts Tramadol Hcl (TRAMADOL HCL) 50 Mg Tablet, 1 TAB PO Q6H Y for PAIN, #12 MG TAKE ONE TABLETS BY MOUTH EVERY SIX HOURS NEEDED Prov:BERANDETTEMICHEAL DO 03/28/18 Ciprofloxacin Hcl (CIPRO) 500 Mg Tablet, 500 MG PO BID for infection, #14 Prov:MICHEAL FLEMING DO 03/28/18 Reported Medications Trazodone Hcl (TRAZODONE HCL) 100 Mg Tablet, 100 MG PO HS, TAB 10/14/17 Sertraline Hcl (ZOLOFT) 100 Mg Tablet, 1 TAB PO QDAY, TAB 10/14/17 Discontinued Scripts Nitrofurantoin Monohyd/M-Cryst (MACROBID 100 MG CAPSULE) 100 Mg Capsule, 100 MG PO BID for 10 Days, #20 CAPSULE Prov:BON REDDY MD 12/25/17 Reviewed Nurses Notes: Yes Old Medical Records Reviewed: Yes Hx Substance Use Disorder: No Hx Alcohol Use: Yes (occasional ) Constitutional Vital Sign - Last 24 Hours 03/28/18 03/28/18 03/28/18 03/28/18 17:41 17:45 17:47 17:56 Temp 97.8 Pulse ??? 70 68 Resp 14 B/P (MAP) 124/80 124/80 (95) Pulse Ox 91 91 O2 Delivery Room Air 03/28/18 03/28/18 18:11 18:33 Pulse 75 62 B/P (MAP) 142/109 (120) Pulse Ox 90 91 O2 Delivery Room Air Physical Exam Vital signs stable, afebrile, pulse ox normal General Appearance: The patient is alert, has no immediate need for airway protection and no current signs of toxicity.. Mild distress HEENT: Pupils equal and round no injection. Oropharynx with moist membranes, no erythema Respiratory: Chest is non tender, lungs are clear to auscultation. Cardiac: regular rate and rhythm Gastrointestinal: Abdomen is soft and non tender, no masses, bowel sounds normal., No CVA tenderness bilaterally with percussion Musculoskeletal: Neck: Neck is supple and non tender. No lymphadenopathy Extremities have full range of motion and are non tender. Skin: No rashes or lesions. DIFFERENTIAL DIAGNOSIS: After history and physical exam differential diagnosis was considered for abdominal pain including but not limited to appendicitis, cholecystitis, gastritis and urinary tract infection. Additionally,abdominal pain in a female including but not limited to ovarian cyst, pelvic inflammatory disease, ovarian torsion. Medical Decision Making Data Points Result Diagram: 03/28/18 1755 03/28/18 1755 Laboratory Hematology Test 03/28/18 17:45 03/28/18 17:55 Urine Color Yellow Urine Clarity Slightly-cloudy Urine pH 6.0 pH (4.8-9.5) Urine Specific [place] 1.018 Urine Protein Negative mg/dL (NEGATIVE) Urine Glucose (UA) Negative mg/dL (NEGATIVE) Urine Ketones Negative mg/dL (NEGATIVE) Urine Blood Negative (NEGATIVE) Urine Nitrite Negative (NEGATIVE) Urine Bilirubin Negative (NEGATIVE) Urine Urobilinogen Negative mg/dL (0.2-1.9) Urine Leukocyte Esterase Large (NEGATIVE) Urine RBC 11 /HPF (0-2/HPF) Urine WBC 26 /HPF (0-5/HPF) Urine Squamous Epithelial Cells Many /LPF (</=FEW) Urine Transitional Epithelial Cells Few /LPF (NONE-FEW) Urine Bacteria Negative /HPF (NONE-FEW) Urine Hyaline Casts Few /LPF (NONE-FEW) Urine Mucus Few /HPF (NONE-FEW) Red Blood Count 4.88 M/uL (4.17-5.56) Mean Corpuscular Volume 90.5 fL (80.0-96.0) Mean Corpuscular Hemoglobin 31.9 pg (26.0-33.0) Mean Corpuscular Hemoglobin Concent 35.3 g/dL (32.0-36.0) Red Cell Distribution Width 12.9 % (11.5-14.5) Mean Platelet Volume 8.0 fL (7.2-11.1) Neutrophils (%) (Auto) 63.1 % (39.4-72.5) Lymphocytes (%) (Auto) 20.2 % (17.6-49.6) Monocytes (%) (Auto) 8.7 % (4.1-12.4) Eosinophils (%) (Auto) 6.9 % (0.4-6.7) Basophils (%) (Auto) 1.1 % (0.3-1.4) Nucleated RBC Relative Count (auto) 0.1 /100WBC Neutrophils # (Auto) 5.3 K/uL (2.0-7.4) Lymphocytes # (Auto) 1.7 K/uL (1.3-3.6) Monocytes # (Auto) 0.7 K/uL (0.3-1.0) Eosinophils # (Auto) 0.6 K/uL (0.0-0.5) Basophils # (Auto) 0.1 K/uL (0.0-0.1) Nucleated RBC Absolute Count (auto) 0.01 K/uL Sodium Level 140 mmol/L (137-145) Potassium Level 3.8 mmol/L (3.5-5.0) Chloride Level 105 mmol/L (98-107) Carbon Dioxide Level 27 mmol/L (22-31) Blood Urea Nitrogen 16 mg/dl (7-18) Creatinine 1.20 mg/dl (0.52-1.04) Glomerular Filtration Rate Calc 47.0 Random Glucose 102 mg/dl (75-110) Calcium Level 9.0 mg/dl (8.4-10.2) Total Bilirubin 0.3 mg/dl (0.2-1.3) Aspartate Amino Transf (AST/SGOT) 30 U/L (0-35) Alanine Aminotransferase (ALT/SGPT) 34 U/L (0-56) Alkaline Phosphatase 78 U/L (0-126) Total Protein 6.5 g/dl (6.3-8.2) Albumin 3.7 g/dl (3.5-5.0) Amylase Level 93 U/L (0-110) Lipase 186 U/L (23-300) Chemistry Test 03/28/18 17:45 03/28/18 17:55 Urine Color Yellow Urine Clarity Slightly-cloudy Urine pH 6.0 pH (4.8-9.5) Urine Specific [place] 1.018 Urine Protein Negative mg/dL (NEGATIVE) Urine Glucose (UA) Negative mg/dL (NEGATIVE) Urine Ketones Negative mg/dL (NEGATIVE) Urine Blood Negative (NEGATIVE) Urine Nitrite Negative (NEGATIVE) Urine Bilirubin Negative (NEGATIVE) Urine Urobilinogen Negative mg/dL (0.2-1.9) Urine Leukocyte Esterase Large (NEGATIVE) Urine RBC 11 /HPF (0-2/HPF) Urine WBC 26 /HPF (0-5/HPF) Urine Squamous Epithelial Cells Many /LPF (</=FEW) Urine Transitional Epithelial Cells Few /LPF (NONE-FEW) Urine Bacteria Negative /HPF (NONE-FEW) Urine Hyaline Casts Few /LPF (NONE-FEW) Urine Mucus Few /HPF (NONE-FEW) White Blood Count 8.4 k/uL (4.5-11.0) Red Blood Count 4.88 M/uL (4.17-5.56) Hemoglobin 15.6 g/dL (12.0-16.0) Hematocrit 44.2 % (34.0-47.0) Mean Corpuscular Volume 90.5 fL (80.0-96.0) Mean Corpuscular Hemoglobin 31.9 pg (26.0-33.0) Mean Corpuscular Hemoglobin Concent 35.3 g/dL (32.0-36.0) Red Cell Distribution Width 12.9 % (11.5-14.5) Platelet Count 228 K/uL (150-450) Mean Platelet Volume 8.0 fL (7.2-11.1) Neutrophils (%) (Auto) 63.1 % (39.4-72.5) Lymphocytes (%) (Auto) 20.2 % (17.6-49.6) Monocytes (%) (Auto) 8.7 % (4.1-12.4) Eosinophils (%) (Auto) 6.9 % (0.4-6.7) Basophils (%) (Auto) 1.1 % (0.3-1.4) Nucleated RBC Relative Count (auto) 0.1 /100WBC Neutrophils # (Auto) 5.3 K/uL (2.0-7.4) Lymphocytes # (Auto) 1.7 K/uL (1.3-3.6) Monocytes # (Auto) 0.7 K/uL (0.3-1.0) Eosinophils # (Auto) 0.6 K/uL (0.0-0.5) Basophils # (Auto) 0.1 K/uL (0.0-0.1) Nucleated RBC Absolute Count (auto) 0.01 K/uL Glomerular Filtration Rate Calc 47.0 Calcium Level 9.0 mg/dl (8.4-10.2) Total Bilirubin 0.3 mg/dl (0.2-1.3) Aspartate Amino Transf (AST/SGOT) 30 U/L (0-35) Alanine Aminotransferase (ALT/SGPT) 34 U/L (0-56) Alkaline Phosphatase 78 U/L (0-126) Total Protein 6.5 g/dl (6.3-8.2) Albumin 3.7 g/dl (3.5-5.0) Amylase Level 93 U/L (0-110) Lipase 186 U/L (23-300) Urinalysis Test 03/28/18 17:45 Urine Color Yellow Urine Clarity Slightly-cloudy Urine pH 6.0 pH (4.8-9.5) Urine Specific [place] 1.018 Urine Protein Negative mg/dL (NEGATIVE) Urine Glucose (UA) Negative mg/dL (NEGATIVE) Urine Ketones Negative mg/dL (NEGATIVE) Urine Blood Negative (NEGATIVE) Urine Nitrite Negative (NEGATIVE) Urine Bilirubin Negative (NEGATIVE) Urine Urobilinogen Negative mg/dL (0.2-1.9) Urine Leukocyte Esterase Large (NEGATIVE) Urine RBC 11 /HPF (0-2/HPF) Urine WBC 26 /HPF (0-5/HPF) Urine Squamous Epithelial Cells Many /LPF (</=FEW) Urine Transitional Epithelial Cells Few /LPF (NONE-FEW) Urine Bacteria Negative /HPF (NONE-FEW) Urine Hyaline Casts Few /LPF (NONE-FEW) Urine Mucus Few /HPF (NONE-FEW) EKG/Imaging Imaging OLD CT results reviewed from 10/14/17 Date of Sevice: 10/14/2017 CT of the abdomen and pelvis with contrast: Indication: Right flank pain. Technique: Helical CT was performed through the abdomen and pelvis following IV contrast enhancement with 75 cc of [id number]. Multiplanar reconstructions are reviewed. One of the following dose optimization techniques was utilized in the performance of this exam: Automated exposure control; adjustment of the mA and/ or kV according to the patient's size; or use of an iterative reconstruction technique. Specific details can be referenced in the facility's radiology CT exam operational policy. Comparison: Noncontrast CT study dated 08/03/2017. Lower lung hess: There is a 3 mm noncalcified nodule in the right lower lobe, of indeterminant significance. This portion of the chest was not imaged on the previous study. There is an additional nodular opacity in the right posterior costophrenic sulcus, which is unchanged. There is minimal linear atelectasis at both bases. There are no signs of pleural effusion. Liver: There is heterogeneous enhancement of the posterior portion of the right lobe of the liver, which may be related to presence of hemangioma or infiltrating neoplasm. Direct comparison to the prior study is limited due to the lack of contrast. It is recommended that follow-up CT be performed with multiphase contrast imaging. The liver is otherwise unremarkable. Gallbladder/biliary tree: There are surgical clips related to prior cholecystectomy. There is persistent evidence of air in the biliary tree, related to prior surgery or sphincterotomy. There are no signs of biliary obstruction. Pancreas: Normal in size, shape, and density. There are no signs of acute inflammation or fluid. Spleen: There is incidental note of a tiny cyst in the lateral margin. The splenic parenchyma is otherwise homogeneous. A tiny accessory spleen appears unchanged. Adrenal glands: Within normal limits. Kidneys/urinary bladder: There is a small cortical lesion at the posterior and inferior margin of the right kidney, which may represent a small cyst or cysts. A similar finding was observed on the previous study, and there has been no significant change. There appear to be some tiny cortical cysts in both kidneys. The kidneys are otherwise unremarkable and unchanged. There are no signs of urinary tract calculus or obstruction. The bladder is homogeneous and unremarkable, as visualized. Intestinal structures: Unremarkable, as visualized. There are no signs of obstruction or focal inflammatory changes. The appendix is not visualized. Pelvis: The uterus and adnexal structures are unremarkable and unchanged. There is no evidence of fluid or inflammatory changes in the pelvis. Aorta and vascular structures: Within normal limits. Ascites or fluid collections: None seen. Skeletal structures: There are stable degenerative changes in the lumbar spine. No acute skeletal deformity is identified. Impression: Multiple findings, as detailed above. Follow-up evaluation is recommended for reevaluation of pulmonary nodules and heterogeneous enhancement of the liver. Old renal ultrasound reviewed. See results below Date of [facility]: 03/07/2018 KIDNEYS EXAMINATION: Renal ultrasound. History: Right renal cyst, flank pain COMPARISON STUDIES: Renal ultrasound July 19, [address] October 14, 2017 FINDINGS: Kidneys: Right kidney- 8.8 x 3.6 x 4.9 cm.. Lung the inferior aspect of the right kidney there is a 1.9 x 1.7 x 1.4 cm echogenic region slightly more prominent when compared the prior study with no acoustic shadowing. This may represent small fatty deposit or angiomyolipoma. Left kidney- 10.6 x 4 x 4.6 cm Uniform and symmetric blood flow in each kidney by Doppler ultrasound. Hydronephrosis: none Resistive index on the right 0.49 on the left 0.54 Bladder: Prevoid volume 206 mL. Post void residual 0 mL. Bilateral ureteral jets are present Abdominal aorta and IVC: Aorta and IVC are patent by Doppler ultrasound. IMPRESSION: No evidence of hydronephrosis No post void bladder residual Echogenic nodule inferior aspect of the right kidney again seen which may represent small fatty deposit or angiomyolipoma ED Course/Re-evaluation Clinical Indication for ER IV: IV Access ED Course Patient was admitted to an examination room. H&P was done. The differential diagnoses was considered. Patient and diagnostic studies ordered. Her laboratory studies are unremarkable. Her urinalysis shows gross infection. A urinary cultures ordered. Patient was offered medication for nausea and pain IV but declined. She'll be treated with Cipro 500 mg by mouth twice a day. She has plans to follow up with her primary care and urology. Patient advised to use AZO or Uristat. Decision to Disposition Date: Mar 28, 2018 Decision to Disposition Time: 18:12 Depart Departure Latest Vital Signs Vital Signs Date Time Temp Pulse Resp B/P (MAP) Pulse Ox O2 Delivery O2 Flow Rate FiO2 03/28/18 18:33 62 142/109 (120) 91 Room Air 03/28/18 17:45 97.8 14 Impression: Primary Impression: Abdominal bloating Additional Impressions: Flank pain Urinary tract infection Renal cyst Condition: Improved Disposition: HOME OR SELF-CARE Referrals: LEENA HOOD DO New Scripts Tramadol Hcl (TRAMADOL HCL) 50 Mg Tablet 1 TAB PO Q6H Y for PAIN, #12 MG TAKE ONE TABLETS BY MOUTH EVERY SIX HOURS NEEDED Prov: MICEHAL FLEMING DO 03/28/18 Ciprofloxacin Hcl (CIPRO) 500 Mg Tablet 500 MG PO BID for infection, #14 Prov: MICHEAL FLEMING DO 03/28/18 Patient Instructions: Urinary Tract Infection in Women (ED) Additional Instructions: Take Azo-Standard or Uristat to help with urinary symptoms Take ibuprofen 200 mg 3 tablets 3 times a day for inflammatory pain relief Drink plenty of fluids to help flush out the infection Follow-up with your primary care and urologist as planned Problem Qualifiers Additional Impressions: Urinary tract infection Urinary tract infection type: acute cystitis Hematuria presence: without hematuria Qualified Codes: N30.00 - Acute cystitis without hematuria MICHEAL FLEMING DO Mar 28, 2018 17:57
[2018-03-28 18:11] LABS: PLATELET COUNT, AUTOMATED 228 K/uL (150-450)
[2018-03-28] MEDS ORDERED: CIPROFLOXACIN 500 MG TAB PO ONE (18:25)
[2018-03-28] MEDS ORDERED: CIPR-344 PO (18:25)
[2018-03-28] MEDS ORDERED: TRAM-420 PO (18:25)
[2018-03-28] MEDS ORDERED: traMADol 50 MG TAB TH 2 TAB/BOTTLE PO ONE (18:25)
[2018-03-28 18:33] VITALS: BP 142/109
== END 2018-03-28 18:35 | disposition home or self-care (01) ==
LOC: ER 17:51
DX: N30.00 Acute cystitis without hematuria (principal); N28.1 Cyst of kidney, acquired
CPT/HCPCS: 81001; 82040; 82150; 82247; 82310; 82374; 82435; 82565; 82947; 83690; 84075; 84132; 84155; 84295; 84450; 84460; 84520; 85025; 87088; 99282

== ENCOUNTER 2018-03-30 16:22 | Emergency (ER) | payer BC ==
[~2018-03-30 16:22] MED LIST changes: +CIPR-344 PO; +TRAM-420 PO
--- NOTE | 2018-03-30 16:43 | ER Report ---
History and Physical Time Seen By MD: 16:39 HPI/ROS CHIEF COMPLAINT: Abdominal pain HISTORY OF PRESENT ILLNESS: Is is a 52-year-old female who presents to the emergency department for abdominal pain. The patient was here on March 28, was seen and evaluated by one of our providers, noted to have a gross urinary tract infection, was placed on Cipro and sent home. According to the patient she is been dealing with abdominal pain and urinary tract infections for "some time", she has seen her provider Dr. Wise several times and patient was placed on Macrobid prior to her coming to the emergency department. Patient also states that she had a mass on her right kidney that was noted on a CT scan. Patient states that she's had increased abdominal pain, flank pain bilaterally now "bandlike" across the abdomen. She also states the pain is so intense now that she has increased shortness of breath with the pain. Patient states she's not had a bowel movement in about a day or two. No aches or chills, no fevers, no chest pain or shortness of breath. No rashes or headaches. REVIEW OF SYSTEMS: Constitutional: No fever, no chills. Eyes: No discharge. ENT: No sore throat. Cardiovascular: No chest pain, no palpitations. Respiratory: No cough, no shortness of breath. Gastrointestinal: As above. Genitourinary: As above. Musculoskeletal: No back pain. Skin: No rashes. Neurological: No headache. Allergies: Coded Allergies: No Known Drug Allergies (Unverified , 03/28/18) Home Meds Active Scripts Hydrocodone Bit/Acetaminophen (HYDROCODON-ACETAMINOPHEN 5-325) 1 Each Tablet, 1 EACH PO Q4-6H Y for PAIN, #8 TAB 0 Refills Prov:DOMINGA GUERRERO [employer] 03/30/18 Ketorolac Tromethamine (KETOROLAC TROMETHAMINE) 10 Mg Tab, 10 MG PO Q6H Y for prn, #12 TAB 0 Refills Prov:DOMINGA GUERRERO [employer] 03/30/18 Tamsulosin Hcl (FLOMAX) 0.4 Mg Cap.er.24h, 0.4 MG PO DAILY for 15 Days, #15 CAP 0 Refills Prov:DOMINGA GUERRERO [employer] 7/6/18 Tramadol Hcl (TRAMADOL HCL) 50 Mg Tablet, 1 TAB PO Q6H Y for PAIN, #12 MG TAKE ONE TABLETS BY MOUTH EVERY SIX HOURS NEEDED Prov:MICHEAL FLEMING DO 03/28/18 Ciprofloxacin Hcl (CIPRO) 500 Mg Tablet, 500 MG PO BID for infection, #14 Prov:MICHEAL FLEMING DO 03/28/18 Reported Medications Trazodone Hcl (TRAZODONE HCL) 100 Mg Tablet, 100 MG PO HS, TAB 10/14/17 Sertraline Hcl (ZOLOFT) 100 Mg Tablet, 1 TAB PO QDAY, TAB 10/14/17 Discontinued Scripts Nitrofurantoin Monohyd/M-Cryst (MACROBID 100 MG CAPSULE) 100 Mg Capsule, 100 MG PO BID for 10 Days, #20 CAPSULE Prov:BON REDDY MD 12/25/17 Past Medical/Surgical History Patient has a past medical and surgical history of heart murmur, hypercholesterolemia, asthma, pyelonephritis as a child, wears glasses, depression, suicide attempt, cholecystectomy, uterine ablation, cysts on the right kidney. Reviewed Nurses Notes: Yes Hx Substance Use Disorder: No Hx Alcohol Use: Yes (occasional ) Constitutional Vital Sign - Last 24 Hours 03/30/18 16:47 Temp 97.9 Pulse 67 Resp 16 B/P (MAP) 140/91 Pulse Ox 98 O2 Delivery Room Air Intake and Output 03/30/18 03/30/18 03/31/18 15:00 23:00 07:00 Intake Total 1000 ml Balance 1000 ml Physical Exam General Appearance: The patient is alert, has no immediate need for airway protection and no signs of toxicity. Eyes: Pupils equal and round no pallor or injection. ENT, Mouth: Mucous membranes are moist. Respiratory: There are no retractions, lungs are clear to auscultation. Cardiovascular: Regular rate and rhythm, systolic murmur, no clicks or rubs. Gastrointestinal: Abdomen is soft, mild tenderness throughout the abdomen, CVA tenderness bilaterally, normoactive bowel sounds, no masses, no abdominal bruits. Neurological: Alert and oriented 4. Moving all of committees. Following all commands. No focal neuro deficits. Skin: Warm and dry, no rashes. Musculoskeletal: Neck is supple non tender. Extremities are nontender, nonswollen and have full range of motion. DIFFERENTIAL DIAGNOSIS: After history and physical exam differential diagnosis was considered for abdominal pain in a female including but not limited to ovarian cyst, pyelonephritis, renal colic, pelvic inflammatory disease, ovarian torsion, urinary tract infection, and appendicitis. Medical Decision Making Data Points Result Diagram: 03/30/18175403/30/181754 Laboratory Hematology Test 03/30/18 17:55 Red Blood Count 4.79 M/uL (4.17-5.56) Mean Corpuscular Volume 91.1 fL (80.0-96.0) Mean Corpuscular Hemoglobin 31.5 pg (26.0-33.0) Mean Corpuscular Hemoglobin Concent 34.6 g/dL (32.0-36.0) Red Cell Distribution Width 13.3 % (11.5-14.5) Mean Platelet Volume 7.7 fL (7.2-11.1) Neutrophils (%) (Auto) 73.7 % (39.4-72.5) Lymphocytes (%) (Auto) 13.3 % (17.6-49.6) Monocytes (%) (Auto) 8.4 % (4.1-12.4) Eosinophils (%) (Auto) 3.9 % (0.4-6.7) Basophils (%) (Auto) 0.7 % (0.3-1.4) Nucleated RBC Relative Count (auto) 0.0 /100WBC Neutrophils # (Auto) 6.3 K/uL (2.0-7.4) Lymphocytes # (Auto) 1.1 K/uL (1.3-3.6) Monocytes # (Auto) 0.7 K/uL (0.3-1.0) Eosinophils # (Auto) 0.3 K/uL (0.0-0.5) Basophils # (Auto) 0.1 K/uL (0.0-0.1) Nucleated RBC Absolute Count (auto) 0.00 K/uL Sodium Level 138 mmol/L (137-145) Potassium Level 4.2 mmol/L (3.5-5.0) Chloride Level 99 mmol/L (98-107) Carbon Dioxide Level 30 mmol/L (22-31) Blood Urea Nitrogen 15 mg/dl (7-18) Creatinine 1.40 mg/dl (0.52-1.04) Glomerular Filtration Rate Calc 39.3 Random Glucose 84 mg/dl (75-110) Calcium Level 9.1 mg/dl (8.4-10.2) Total Bilirubin 0.6 mg/dl (0.2-1.3) Aspartate Amino Transf (AST/SGOT) 37 U/L (0-35) Alanine Aminotransferase (ALT/SGPT) 38 U/L (0-56) Alkaline Phosphatase 82 U/L (0-126) Total Protein 6.7 g/dl (6.3-8.2) Albumin 3.8 g/dl (3.5-5.0) Amylase Level 85 U/L (0-110) Lipase 69 U/L (23-300) Chemistry Test 03/30/18 17:55 White Blood Count 8.6 k/uL (4.5-11.0) Red Blood Count 4.79 M/uL (4.17-5.56) Hemoglobin 15.1 g/dL (12.0-16.0) Hematocrit 43.7 % (34.0-47.0) Mean Corpuscular Volume 91.1 fL (80.0-96.0) Mean Corpuscular Hemoglobin 31.5 pg (26.0-33.0) Mean Corpuscular Hemoglobin Concent 34.6 g/dL (32.0-36.0) Red Cell Distribution Width 13.3 % (11.5-14.5) Platelet Count 210 K/uL (150-450) Mean Platelet Volume 7.7 fL (7.2-11.1) Neutrophils (%) (Auto) 73.7 % (39.4-72.5) Lymphocytes (%) (Auto) 13.3 % (17.6-49.6) Monocytes (%) (Auto) 8.4 % (4.1-12.4) Eosinophils (%) (Auto) 3.9 % (0.4-6.7) Basophils (%) (Auto) 0.7 % (0.3-1.4) Nucleated RBC Relative Count (auto) 0.0 /100WBC Neutrophils # (Auto) 6.3 K/uL (2.0-7.4) Lymphocytes # (Auto) 1.1 K/uL (1.3-3.6) Monocytes # (Auto) 0.7 K/uL (0.3-1.0) Eosinophils # (Auto) 0.3 K/uL (0.0-0.5) Basophils # (Auto) 0.1 K/uL (0.0-0.1) Nucleated RBC Absolute Count (auto) 0.00 K/uL Glomerular Filtration Rate Calc 39.3 Calcium Level 9.1 mg/dl (8.4-10.2) Total Bilirubin 0.6 mg/dl (0.2-1.3) Aspartate Amino Transf (AST/SGOT) 37 U/L (0-35) Alanine Aminotransferase (ALT/SGPT) 38 U/L (0-56) Alkaline Phosphatase 82 U/L (0-126) Total Protein 6.7 g/dl (6.3-8.2) Albumin 3.8 g/dl (3.5-5.0) Amylase Level 85 U/L (0-110) Lipase 69 U/L (23-300) EKG/[place]aging [place] [facility] [place]: [place] Val[place] : 1965 Visit/Account:[id number] [facility] COMPUTED TOMOGRAPHY OF THE Abdomen and Pelvis with CONTRAST INDICATION: Abdominal and flank pain. TECHNIQUE: Contiguous axial 3.[address] images were obtained through the abdomen and pelvis after 80 cc of Isovue-370. Coronal and sagittal reformatted images were submitted. COMPARISON: CT of October 14, 2017.. FINDINGS: Lung bases: Trace atelectasis at the lung bases. 5 mm nodule in the left lower lobe on series 2 image 15 is unchanged in size since the CT of August 03, 2017 allowing for differences in slice selection. Liver and hepatic vasculature: Pneumobilia predominantly in the left lobe is similar to prior imaging. Mild fatty infiltration adjacent to the falciform. Gallbladder and bile ducts: Surgically absent gallbladder. Spleen: There is a small hypodensity in the spleen that may be a cyst but does measure higher than water attenuation on today's study. Pancreas: Normal Adrenals: There is calcification along the medial limb of the left adrenal. The right adrenal is normal. Kidneys, ureters and bladder: Mild left hydronephrosis and dilation of the left ureter with a 4 mm calculus in the downstream left ureter. Retroperitoneum and aorta: Normal caliber aorta. GI tract, mesentery and peritoneum: No bowel obstruction. No free fluid or free air. Uterus and adnexa: Unremarkable uterus. Bones and soft tissues: No acute osseous abnormality. Multilevel degenerative findings with severe facet arthropathy at L5-S1 and vacuum disc phenomenon at L3 -4 and L4-5. IMPRESSION: 1. 4 mm stone in the downstream left ureter near the UVJ results in mild left hydronephrosis. 2. Additional chronic findings as above. One of the following dose optimization techniques was utilized in the performance of this exam: Automated exposure control; adjustment of the mA and/ or kV according to the patient's size; or use of an iterative reconstruction technique. Specific details can be referenced in the facility's radiology CT exam operational policy. Report Dictated By: Kylee Velasco MD at 03/30/2018 6:56 PM Report E-Signed By: Kylee Velasco MD at 03/30/2018 7:20 PM WSN:[id number] ED Course/Re-evaluation Clinical Indication for ER IV: Hydration, IV Access ED Course The patient was admitted to room. A history and physical were obtained. Differential diagnoses were considered. An IV was started. A CBC, CMP and UA were obtained. A 1 L normal saline bolus was given.Patient was giving 4 mg IV Zofran, 4 mg IV morphine, 30 mg IV Toradol, 0.5 mg hydromorphone, one tamsulosin capsule.CBC unremarkable, chemistry showing creatinine 1.40, the patient's last 2 chemistry showing creatinine of 1.20. A CT of the abdomen and pelvis is showing a 4 mm renal calculi on the left side at the UVJ. I did review the lab studies and the CT results with the patient. I did tell her I can treat her with some hydrocodone, Flomax and Toradol outpatient, she can follow up with the urologist as scheduled. Continue taking her antibiotics as prescribed for the urinary tract infection. Strain your urine and the stone if identified to the urologist with you. The patient states she is feeling much better at the time of discharge. The patient had no other questions or concerns and was discharged home. Decision to Disposition Date: Mar 30, 2018 Decision to Disposition Time: 19:30 Depart Departure Latest Vital Signs Vital Signs Date Time Temp Pulse Resp B/P (MAP) Pulse Ox O2 Delivery O2 Flow Rate FiO2 03/30/18 16:47 97.9 67 16 140/91 98 Room Air Impression: Primary Impression: Renal calculus, left Additional Impression: Hydronephrosis Condition: Improved Disposition: HOME OR SELF-CARE Referrals: LEENA PFEIFFER DO (PCP) UROLOGY 1 Week New Scripts Hydrocodone Bit/Acetaminophen (HYDROCODON-ACETAMINOPHEN 5-325) 1 Each Tablet 1 EACH PO Q4-6H Y for PAIN, #8 TAB 0 [facility] 03/30/18 Ketorolac Tromethamine (KETOROLAC TROMETHAMINE) 10 Mg Tab 10 MG PO Q6H Y for prn, #12 TAB 0 Refills [facility] 03/30/18 Tamsulosin Hcl (FLOMAX) 0.4 Mg Cap.er.24h 0.4 MG PO DAILY for 15 Days, #15 CAP 0 Refills Prov: DOMINGA GUERRERO [facility] 03/30/18 Patient Instructions: Kidney Stones (ED) Additional Instructions: Drink plenty of water. Get plenty of rest. Try straining your urine if you find the stone be sure to take that T or follow- up appointment with the urologist as scheduled. Take the Flomax as directed. Take the Toradol as directed. Take the hydrocodone for severe pain. Continue taking your antibiotics as prescribed. Return to the emergency department for any other concerns or worsening symptoms. Problem Qualifiers Additional Impression: Hydronephrosis Hydronephrosis type: with renal calculous obstruction Qualified Codes: N13.2 - Hydronephrosis with renal and ureteral calculous obstruction DOMINGA GUERRERO [facility] Mar 30, 2018 16:43
[2018-03-30] MEDS ORDERED: NS(*) 0.9% 1000 ML BAG 1,000 ML IV ONE (17:06)
[2018-03-30] MEDS ORDERED: MORPHINE 4 MG/ML SDV IVP ONE (17:10)
[2018-03-30] MEDS ORDERED: ONDANSETRON 4 MG/2 ML VIAL IVP ONE (17:10)
[2018-03-30] MEDS ORDERED: IOPAMIDOL 76% 100 ML INFUS BTL 100 ML ONE (17:25)
[2018-03-30 18:19] LABS: PLATELET COUNT, AUTOMATED 210 K/uL (150-450)
[2018-03-30 19:03] VITALS: BP 142/88
[2018-03-30] MEDS ORDERED: HYDROmorphone* 1 MG/ML 1 MG/ML ML IVP ONE (19:05)
--- NOTE | 2018-03-30 19:23 | RADIOLOGY IMAGING REPORT ---
FACILITY: [facility] PATIENT NAME: Safia Valdez : 1965 MR: [id number] V: [id number] EXAM DATE: ORDERING PHYSICIAN: DOMINGA GUERRERO TECHNOLOGIST: Location: [facility] [place] Patient: Safia Valdez : 1965 Visit/Account:[id number] Date of Sevice: 03/30/2018 COMPUTED TOMOGRAPHY OF THE Abdomen and Pelvis with CONTRAST INDICATION: Abdominal and flank pain. TECHNIQUE: Contiguous axial 3.[address] images were obtained through the abdomen and pelvis after 80 c c of Isovue-370. Coronal and sagittal reformatted images were submitted. COMPARISON: CT of October 14, 2017.. FINDINGS: Lung bases: Trace atelectasis at the lung bases. 5 mm nodule in the left lower lobe on series 2 image 15 is unchanged in size since the CT of August 03, 2017 allowing for differences in slice selection . Liver and hepatic vasculature: Pneumobilia predominantly in the left lobe is similar to prior imagin g. Mild fatty infiltration adjacent to the falciform. Gallbladder and bile ducts: Surgically absent gallbladder. Spleen: There is a small hypodensity in the spleen that may be a cyst but does measure higher than w ater attenuation on today's study. Pancreas: Normal Adrenals: There is calcification along the medial limb of the left adrenal. The right adrenal is nor mal. Kidneys, ureters and bladder: Mild left hydronephrosis and dilation of the left ureter with a 4 mm c alculus in the downstream left ureter. Retroperitoneum and aorta: Normal caliber aorta. GI tract, mesentery and peritoneum: No bowel obstruction. No free fluid or free air. Uterus and adnexa: Unremarkable uterus. Bones and soft tissues: No acute osseous abnormality. Multilevel degenerative findings with severe fa cet arthropathy at L5-S1 and vacuum disc phenomenon at L3-4 and L4-5. IMPRESSION: 1. 4 mm stone in the downstream left ureter near the UVJ results in mild left hydronephrosis. 2. Additional chronic findings as above. One of the following dose optimization techniques was utilized in the performance of this exam: Autom ated exposure control; adjustment of the mA and/or kV according to the patient's size; or use of an i terative reconstruction technique. Specific details can be referenced in the facility's radiology C T exam operational policy. Report Dictated By: Kylee Velasco MD at 03/30/2018 6:56 PM Report E-Signed By: Kylee Velasco MD at 03/30/2018 7:20 PM WSN:[id number]
[2018-03-30] MEDS ORDERED: KETOROLAC 30 MG/ML VIAL IVP ONE (19:30)
[2018-03-30] MEDS ORDERED: TAMSULOSIN HCL 0.4 MG CAP PO ONE (19:30)
[2018-03-30] MEDS ORDERED: KET10 PO (19:41)
[2018-03-30] MEDS ORDERED: TAMS0.4C25 PO (19:41)
[2018-03-30] MEDS ORDERED: HYDR-385 PO (19:44)
== END 2018-03-30 20:07 | disposition home or self-care (01) ==
LOC: ER 16:36
DX: N13.2 Hydronephrosis with renal and ureteral calculous obstruction (principal)
CPT/HCPCS: 74177; 82150; 83690; 85025; 96361; 96374; 96375; 99284; A4353; J1170; J1885; J2270; J2405; J7030; Q9967; 82040; 82247; 82310; 82374; 82435; 82565; 82947; 84075; 84132; 84155; 84295; 84450; 84460; 84520

== ENCOUNTER → 2018-10-03 | Outpatient (CLI) | payer BC ==
[~2018-10-03] MED LIST changes: +HYDR-385 PO; +KET10 PO; +TAMS0.4C25 PO; -TRAZ-163 PO; +TRAZ100T31 PO
--- NOTE | 2018-10-03 14:17 | RADIOLOGY IMAGING REPORT ---
FACILITY: [facility] - [place] PATIENT NAME: Safia Valdez : 1965 MR: [id number] V: [id number] EXAM DATE: ORDERING PHYSICIAN: LEENA PFEIFFER TECHNOLOGIST: Location: [facility] Patient: Safia Valdez : 1965 Visit/Account:[id number] Date of Sevice: 10/03/2018 Exam type: CHEST PA LAT History: Chronic cough with mucus x1 year Comparison: KUB December 25, [address] of the abdomen and pelvis March 30, 2018. Findings: There is blunting of the right costophrenic angle. This appeared to been present on the topogram fro m the CT abdomen pelvis dated March 30, 2018 and likely represents chronic scarring. No acute-appearin g pulmonary consolidation is seen. There is no evidence of a pneumothorax or pneumomediastinum. The cardiac silhouette is normal in size. IMPRESSION: 1. Blunting the right costophrenic angle appears to represent chronic scarring. Report Dictated By: Gwendolyn Goodman MD at 10/03/2018 2:11 PM Report E-Signed By: Gwendolyn Goodman MD at 10/03/2018 2:12 PM WSN:[email or web address]
== END ==
LOC: RESP 01:41
PROVIDERS: ATTEND Family Medicine
DX: J98.4 Other disorders of lung (principal); R91.8 Other nonspecific abnormal finding of lung field
CPT/HCPCS: 71046; 94060; 94726; 94729

== ENCOUNTER → 2018-12-14 | Outpatient (CLI) | payer BC ==
--- NOTE | 2018-12-14 12:05 | RADIOLOGY IMAGING REPORT ---
[place] [facility] [place]: Safia Valdez : 1965 MR: [id number] V: [id number] EXAM DATE: ORDERING PHYSICIAN: NUNO RODRIGUES TECHNOLOGIST: Location: [facility] Patient: Safia Valdez : 1965 Visit/Account:[id number] Date of Sevice: 12/14/[address] scan without contrast. HISTORY: Lung nodule. COMPARISON: Abdominal CT scan 10/14/2017. 3 mm thick and [address] images were obtained of the chest. No intravenous contrast. One of the following dose optimization techniques was utilized in the performance of this exam: Automated exposure control; adjustment of the mA and/or kV according to the patient's size; or use of an itera tive reconstruction technique. Specific details can be referenced in the facility's radiology CT ex am operational policy. FINDINGS: The proximal ascending aorta is partially calcified. Several lymph nodes measuring less than 1.5 cm in diameter are scattered in the mediastinum. Mediastinal detail is limited without intravenous cont rast. A 5 mm noncalcified nodule is present in the lateral segment of the left lower lobe, unchanged . A 3 mm noncalcified nodule is present in the lateral segment of the right lower lobe, unchanged. Minimal streaky densities are scattered elsewhere in both lungs. No pleural fluid. No pneumothorax. Surgical clips are present in the gallbladder fossa. Air is present within the intrahepatic bile d ucts, unchanged. IMPRESSION: Bilateral lung nodules, unchanged. Stability compared to previous supports a benign etiology such as noncalcified granulomas. See Fleischner Society guidelines below. Absent gallbladder. Pneumobilia suggesting prior biliary instrumentation, unchanged. FLEISCHNER SOCIETY FOLLOW-UP GUIDELINES FOR NEWLY DETECTED INCIDENTAL NODULES IN PERSONS 35 YEARS OF AGE OR OLDER. *These recommendations do NOT apply to lung cancer screening, patients with immunosuppression or laura ents with a known primary malignancy. MULTIPLE SOLID NODULES If nodule size is < 6 mm: * Low risk patient ? No routine follow-up. * High risk patient ? Optional CT at 12 months. If nodule size is 6-8 mm: * Low risk patient ? CT at 3-6 months, then consider CT at 18-24 months if no change. * High risk patient ? CT at 3-6 months, then CT at 18-24 months if no change. If nodule size is > 8 mm: * Low risk patient ? CT at 3-6 months, then consider CT at 18-24 months if no change. * High risk patient ? CT at 3-6 months, then consider CT at 18-24 months if no change. LOW RISK PATIENT: Minimal or absent history of tobacco use and of other known risk factors. HIGH RISK PATIENT: Tobacco use, family history of lung cancer, upper pulmonary lobe location of nodul e, presence of emphysema, pulmonary fibrosis, older age. Alisson H, Keyona DP, Mikayla HALL, et al. Guidelines for Management of Incidental Pulmonary Nodules Dete cted on CT Images: From the Fleischner Society 2017. Radiology. [facility] Report Dictated By: Art Fontaine MD at 12/14/2018 11:51 AM Report E-Signed By: Art Fontaine MD at 12/14/2018 12:01 PM WSN:[email or web address]
== END ==
LOC: CT 01:19
PROVIDERS: ATTEND Internal Medicine
DX: I70.0 Atherosclerosis of aorta (principal); R91.1 Solitary pulmonary nodule; Z90.49 Acquired absence of other specified parts of digestive tract
CPT/HCPCS: 71250

== ENCOUNTER → 2019-03-15 | Outpatient (CLI) | payer BC ==
--- NOTE | 2019-03-15 13:49 | RADIOLOGY IMAGING REPORT ---
FACILITY: [facility] PATIENT NAME: Safia Valdez : 1965 MR: [id number] V: [id number] EXAM DATE: ORDERING PHYSICIAN: LEENA PFEIFFER TECHNOLOGIST: Location: [facility] - [place], [place] Patient: Safia Valdez : 1965 Visit/Account:[id number] Date of Sevice: 03/15/2019 CHEST PA LAT HISTORY: Bronchitis COMPARISON: 10/03/2018 FINDINGS: Cardiomediastinal contours: Normal Lungs and pleura: Chronic elevation the right diaphragm with mild blunting of the right costophrenic angle, likely scar. Bones/soft tissues: Normal Other findings: None significant IMPRESSION: 1. No acute change. Report Dictated By: Koko Ruelas MD at 03/15/2019 1:42 PM Report E-Signed By: Koko Ruelas MD at 03/15/2019 1:43 PM WSN:[email or web address]
--- NOTE | 2019-03-15 14:19 | RADIOLOGY IMAGING REPORT ---
[place] [facility] [place]IENT NAME: Safia Valdez : 1965 MR: [id number] V: [id number] EXAM DATE: ORDERING PHYSICIAN: LEENA PFEIFFER TECHNOLOGIST: Location: [facility] [place] Patient: Safia Valdez : 1965 Visit/Account:[id number] Date of Sevice: 03/15/2019 FINGER RIGHT 2ND DIGIT HISTORY: Trauma COMPARISON: None FINDINGS: Nondisplaced fracture involving the distal tuft of the index finger. No intra-articular ex tension. No dislocation or radiopaque foreign body. IMPRESSION: 1. Nondisplaced tuft fracture of the distal phalanx of the index finger Report Dictated By: Koko Ruelas MD at 03/15/2019 2:11 PM Report E-Signed By: Koko Ruelas MD at 03/15/2019 2:12 PM WSN:[email or web address]
== END ==
LOC: RAD 10:32
PROVIDERS: ATTEND Family Medicine
DX: S62.660A Nondisplaced fracture of distal phalanx of right index finger, initial encounter for closed fracture (principal); R22.31 Localized swelling, mass and lump, right upper limb; J20.9 Acute bronchitis, unspecified
CPT/HCPCS: 71046